=== PATIENT | female | born 1955 | race African-American/Black ===

== ENCOUNTER 2017-02-18 19:26 | Inpatient (IN) | payer SELFPAY ==
[~2017-02-18] VITALS: Ht 157.5 cm; Wt 81.6 kg
[~2017-02-18 19:26] MED LIST: CLONIDINE; GLIPIZIDE; METFORMIN; METROPROLOL; NORVASC; [UNRECOGNIZED DRUG - OTHER]
[2017-02-18 20:38] LABS: BASOPHILS % 0.9 % (0.0-2.0); EOSINOPHILS % 1.1 % (0.0-5.0); HEMATOCRIT. 42.5 % (36.0-48.0); HEMOGLOBIN. 14.3 g/dL (12.0-16.0); LYMPHOCYTES % 26.8 % (20.0-50.0); MEAN CORPUSCULAR VOLUME 86.1 fL (81.0-99.0); MONOCYTES % 7.6 % (2.0-8.0); NEUTROPHILS % 63.6 % (40.0-76.0); PLATELET 239 x1000/uL (130-400); RED BLOOD CELL COUNT 4.94 mill/uL (4.2-5.4); RED CELL DISTRIBUTION WIDTH 13.4 % (11.6-14.6)
[2017-02-18 20:50] LABS: CARBON DIOXIDE 28 mEq/L (21-32); CHLORIDE 105 mEq/L (98-107)
[2017-02-18] MEDS ORDERED: AMLODIPINE 2.5MG TABLET PO ONE (21:00)
[2017-02-18] MEDS ORDERED: CLONIDINE 0.1MG TABLET PO ONE (21:00)
[2017-02-18] MEDS ORDERED: ASPIRIN 325MG TABLET PO ONE (22:15)
[2017-02-18 22:40] LABS: PROTHROMBIN TIME 10.1 sec (9.4-11.6)
[2017-02-18] MEDS ORDERED: GUAIFENESIN 200MG/10ML SUGAR FREE UDC PO PRN (23:00)
[2017-02-18] MEDS ORDERED: ZOLPIDEM TARTRATE 5MG TABLET PO PRN (23:00)
[2017-02-18] MEDS ORDERED: DIPHENHYDRAMINE 50MG/ML VIAL IV PRN (23:00)
[2017-02-18] MEDS ORDERED: ENOXAPARIN 40MG/0.4ML SYR SUBCUT SCH (23:00)
[2017-02-18] MEDS ORDERED: LORAZEPAM 2MG/ML CPJ IV PRN (23:00)
[2017-02-18] MEDS ORDERED: TRAMADOL 50MG TABLET PO PRN (23:00)
[2017-02-18] MEDS ORDERED: ONDANSETRON HCL 4MG/2ML VIAL IV PRN (23:00)
[2017-02-18] MEDS ORDERED: ACETAMINOPHEN 325MG TABLET PO PRN (23:00)
[2017-02-18] MEDS ORDERED: DOCUSATE SODIUM 100MG CAPSULE PO PRN (23:00)
[2017-02-18] MEDS ORDERED: IPRATROPIUM/ALBUTEROL 0.5-3(2.5)MG/3ML NEB INH PRN (23:00)
[2017-02-18] MEDS ORDERED: MAGNESIUM/ALUMINUM HYDROXIDE/SIMETHICONE 30ML UDC PO PRN (23:00)
[2017-02-18] MEDS ORDERED: KETOROLAC 15MG/ML VIAL IV PRN (23:00)
[2017-02-19] VITALS (7 sets, daily range): BP systolic 122–175; BP diastolic 55–81
[2017-02-19] MEDS ORDERED: NA PHOS,M-B/NA PHOS,DI-BA ENEMA 118ML PR PRN (02:29)
[2017-02-19] MEDS: CLONIDINE 0.1MG TABLET PO PRN (02:35)
[2017-02-19 06:36] LABS: CREATINE KINASE 42 IU/L (26-192); TROPONIN I < 0.02 ng/mL (0.00-0.04)
[2017-02-19 06:43] LABS: CLARITY URINE CLEAR (CLEAR); COLOR URINE YELLOW (YELLOW); GLUCOSE URINE 3+ (NEGATIVE); KETONES URINE NEGATIVE (NEGATIVE); LEUKOCYTE ESTERASE URINE NEGATIVE (NEGATIVE); NITRITE URINE NEGATIVE (NEGATIVE); OCCULT BLOOD URINE NEGATIVE (NEGATIVE); PROTEIN URINE NEGATIVE (NEGATIVE); SPECIFIC GRAVITY URINE 1.059 (1.005-1.030)
[2017-02-19 07:02] LABS: CREATINE KINASE MB FRACTION < 0.5 ng/mL (0.5-3.6)
[2017-02-19 07:19] LABS: *AMPHETAMINES SCREEN URINE NEGATIVE (NEGATIVE); *BARBITURATES SCREEN URINE NEGATIVE (NEGATIVE); *BENZODIAZEPINES SCREEN URINE NEGATIVE (NEGATIVE); *COCAINE SCREEN URINE NEGATIVE (NEGATIVE); CANNABINOID URINE SCREEN NEGATIVE (NEGATIVE); METHADONE URINE SCREEN NEGATIVE (NEGATIVE); OPIATES URINE SCREEN NEGATIVE (NEGATIVE); PHENCYCLIDINE URINE SCREEN NEGATIVE (NEGATIVE)
[2017-02-19] MEDS: FAMOTIDINE 20MG/2ML VIAL IV SCH ×2 (08:48→21:25)
[2017-02-19] MEDS: ASPIRIN 325MG EC TABLET PO SCH (08:48)
[2017-02-19] MEDS: ENOXAPARIN 30MG/0.3ML SYR SUBCUT SCH ×2 (08:49→21:25)
[2017-02-19] MEDS ORDERED: IOHEXOL-350 100 ML BOTTLE ONE (11:12)
[2017-02-19] MEDS ORDERED: SODIUM CHLORIDE 0.9% 10ML VIAL ONE (11:12)
[2017-02-19 16:22] LABS: CREATINE KINASE 44 IU/L (26-192); CREATINE KINASE MB FRACTION 0.5 ng/mL (0.5-3.6); TROPONIN I < 0.02 ng/mL (0.00-0.04)
[2017-02-19] MEDS ORDERED: HYDR-2510 PO (17:16)
[2017-02-19] MEDS ORDERED: LOSA100T14 PO (17:16)
[2017-02-19] MEDS ORDERED: GLIP10TA10 PO (17:16)
[2017-02-19] MEDS ORDERED: AMLO10TA80 PO (17:16)
[2017-02-19] MEDS ORDERED: EMPA25TA PO (17:16)
[2017-02-19] MEDS ORDERED: ASPI-1028 PO (17:16)
[2017-02-19] MEDS ORDERED: LISI10TA5 PO (17:16)
[2017-02-19] MEDS ORDERED: ATOR-2 PO (17:16)
[2017-02-19] MEDS ORDERED: METF10002 PO (17:16)
[2017-02-19] MEDS: ATORVASTATIN CALCIUM 40MG TABLET PO SCH (21:24)
[2017-02-20] VITALS: BP 144/72
[2017-02-20 04:00] VITALS: BP 165/68
[2017-02-20] MEDS: CLONIDINE 0.1MG TABLET PO PRN (04:20)
[2017-02-20 06:30] VITALS: BP 147/63
[2017-02-20] MEDS: FAMOTIDINE 20MG/2ML VIAL IV SCH ×2 (09:16→22:01)
[2017-02-20] MEDS: ASPIRIN 325MG EC TABLET PO SCH (09:16)
[2017-02-20] MEDS: ENOXAPARIN 30MG/0.3ML SYR SUBCUT SCH ×2 (09:17→22:02)
[2017-02-20] MEDS: CLOPIDOGREL 75MG TABLET PO SCH (10:24)
[2017-02-20 12:00] VITALS: BP 167/76
[2017-02-20 12:35] LABS: FOLIC ACID (FOLATE) SERUM 11.5 ng/mL (>5.38)
[2017-02-20 16:00] VITALS: BP 157/72
[2017-02-20 20:00] VITALS: BP 168/76
[2017-02-20] MEDS: METOPROLOL TARTRATE 25MG TABLET PO SCH (22:01)
[2017-02-20] MEDS: LISINOPRIL 20MG TABLET PO SCH (22:01)
[2017-02-20] MEDS: ATORVASTATIN CALCIUM 40MG TABLET PO SCH (22:03)
[2017-02-21] VITALS: BP 186/70
[2017-02-21] MEDS: CLONIDINE 0.1MG TABLET PO PRN (00:35)
[2017-02-21 04:00] VITALS: BP 137/70
[2017-02-21 08:00] VITALS: BP 149/67
[2017-02-21] MEDS: CLOPIDOGREL 75MG TABLET PO SCH (09:32)
[2017-02-21] MEDS: LISINOPRIL 20MG TABLET PO SCH ×2 (09:33→22:53)
[2017-02-21] MEDS: METOPROLOL TARTRATE 25MG TABLET PO SCH ×2 (09:33→21:46)
[2017-02-21] MEDS: ENOXAPARIN 30MG/0.3ML SYR SUBCUT SCH ×2 (09:34→21:47)
[2017-02-21] MEDS: FAMOTIDINE 20MG/2ML VIAL IV SCH ×2 (09:34→21:47)
[2017-02-21 12:00] VITALS: BP 144/76
[2017-02-21 16:00] VITALS: BP 148/77
[2017-02-21 20:00] VITALS: BP 137/74
[2017-02-21] MEDS: ATORVASTATIN CALCIUM 40MG TABLET PO SCH (21:46)
[2017-02-22] VITALS (7 sets, daily range): BP systolic 117–189; BP diastolic 66–95
[2017-02-22] MEDS: CLONIDINE 0.1MG TABLET PO PRN (01:30)
[2017-02-22] MEDS: FAMOTIDINE 20MG/2ML VIAL IV SCH (08:45)
[2017-02-22] MEDS: METOPROLOL TARTRATE 25MG TABLET PO SCH (08:45)
[2017-02-22] MEDS: LISINOPRIL 20MG TABLET PO SCH (08:46)
[2017-02-22] MEDS: ENOXAPARIN 30MG/0.3ML SYR SUBCUT SCH (08:46)
[2017-02-22] MEDS: CLOPIDOGREL 75MG TABLET PO SCH (08:46)
== END 2017-02-22 18:15 | DRG 45 ==
LOC: ER 19:26 → 8WST 22:37 → ENRESERV 23:12
PROVIDERS: ADMIT Internal Medicine; ATTEND Internal Medicine
DX: I63.9 Cerebral infarction, unspecified (principal); E11.65 Type 2 diabetes mellitus with hyperglycemia; I10 Essential (primary) hypertension; I25.10 Atherosclerotic heart disease of native coronary artery without angina pectoris; Z79.4 Long term (current) use of insulin; Z79.82 Long term (current) use of aspirin; Z79.899 Other long term (current) drug therapy; I69.351 Hemiplegia and hemiparesis following cerebral infarction affecting right dominant side
CPT/HCPCS: 36415; 70450; 70496; 70551; 71010; 80053; 80061; 80305; 81001; 82550; 82553; 82607; 82746; 82962; 83036; 84484; 85025; 85610; 92523; 93005; 93306; 93880; 93970; 97112; 97163; 97167; 97530; 99291; A4216; A4565; J1650; J3490; Q9967

== ENCOUNTER 2017-03-26 01:25 | Emergency (ER) | payer SELFPAY ==
[~2017-03-26] VITALS: Ht 167.6 cm; Wt 62.0 kg
[~2017-03-26 01:25] MED LIST changes: +AMLO10TA80 PO; +ASPI-1028 PO; +ATOR-2 PO; +EMPA25TA PO; +GLIP10TA10 PO; +HYDR-2510 PO; +LISI10TA5 PO; +LOSA100T14 PO; +METF10002 PO
[2017-03-26] MEDS ORDERED: KETOROLAC 30MG/ML VIAL IV ONE (01:30)
[2017-03-26] MEDS ORDERED: MORPHINE SULFATE 4 MG/ML CPJ (NOT FOR IM USE) IV ONE (01:30)
[2017-03-26] MEDS ORDERED: TRAMADOL 50MG TABLET PO ONE (04:00)
[2017-03-26 05:02] VITALS: BP 152/70
== END 2017-03-26 05:10 | disposition home or self-care (01) ==
LOC: ER 01:25
DX: M25.551 Pain in right hip (principal); R03.0 Elevated blood-pressure reading, without diagnosis of hypertension; E11.9 Type 2 diabetes mellitus without complications; I69.351 Hemiplegia and hemiparesis following cerebral infarction affecting right dominant side; Z79.82 Long term (current) use of aspirin; Z79.84 Long term (current) use of oral hypoglycemic drugs; Z79.899 Other long term (current) drug therapy
CPT/HCPCS: 73502; 73552; 73590; 96374; 96375; 99284; J1885; J2270; Z7610

== ENCOUNTER 2017-03-29 20:32 | Emergency (ER) | payer SELFPAY ==
[~2017-03-29] VITALS: Ht 157.5 cm; Wt 79.0 kg
[2017-03-29] MEDS ORDERED: TRAMADOL 50MG TABLET PO ONE (22:15)
[2017-03-29 23:32] VITALS: BP 165/80
== END 2017-03-29 23:55 | disposition home or self-care (01) ==
LOC: ER 20:32
DX: M79.604 Pain in right leg (principal); M79.605 Pain in left leg; E11.65 Type 2 diabetes mellitus with hyperglycemia; Z86.73 Personal history of transient ischemic attack (TIA), and cerebral infarction without residual deficits; Z79.82 Long term (current) use of aspirin
CPT/HCPCS: 82962; 93970; 99284; 99285

== ENCOUNTER 2018-08-16 13:03 | Inpatient (IN) | payer MEDICAID ==
[~2018-08-16] VITALS: Ht 157.5 cm; Wt 70.3 kg
[~2018-08-16 13:03] MED LIST changes: +METF-416 PO; -METF10002 PO
[2018-08-16] MEDS ORDERED: SODIUM CHLORIDE 0.9% 1,000 ML IV ONE (13:12)
[2018-08-16] MEDS ORDERED: METHYLPREDNISOLONE SOD SUCC 125 MG/2 ML VIAL IV ONE (13:15)
[2018-08-16] MEDS ORDERED: DIPHENHYDRAMINE 50MG/ML VIAL IV ONE (13:15)
[2018-08-16] MEDS ORDERED: FAMOTIDINE 20MG/2ML VIAL IV ONE (13:15)
[2018-08-16] MEDS ORDERED: DIPHENHYDRAMINE 50MG/ML VIAL ONE (13:24)
[2018-08-16] MEDS ORDERED: METHYLPREDNISOLONE SOD SUCC 125 MG/2 ML VIAL ONE (13:26)
[2018-08-16] MEDS ORDERED: ONDANSETRON HCL 4MG/2ML INJ IV ONE (13:30)
[2018-08-16 13:41] LABS: BASOPHILS % 0.5 % (0.0-2.0); EOSINOPHILS % 0.7 % (0.0-5.0); HEMATOCRIT. 38.8 % (36.0-48.0); HEMOGLOBIN. 12.9 g/dL (12.0-16.0); LYMPHOCYTES % 16.8 % (20.0-50.0); MEAN CORPUSCULAR HEMOGLOBIN 29.1 pg (28.0-32.0); MEAN CORPUSCULAR VOLUME 87.4 fL (81.0-99.0); MEAN PLATELET VOLUME 8.7 fl (7.4-10.4); MONOCYTES % 5.3 % (2.0-8.0); NEUTROPHILS % 76.7 % (40.0-76.0); PLATELET 312 x1000/uL (130-400); RED BLOOD CELL COUNT 4.44 mill/uL (4.2-5.4); RED CELL DISTRIBUTION WIDTH 12.9 % (11.6-14.6)
[2018-08-16 13:47] LABS: CHLORIDE 109 mEq/L (98-107)
[2018-08-16 13:49] LABS: PARTIAL THROMBOPLASTIN TIME 24.2 sec (23.4-31.0); PROTHROMBIN TIME 9.6 sec (9.1-11.1)
[2018-08-16] MEDS ORDERED: HYDRALAZINE 20MG/ML VIAL IV ONE (14:45)
[2018-08-16] MEDS ORDERED: HYDROMORPHONE HCL/PF 2MG/ML CPJ IV PRN (15:30)
[2018-08-16] MEDS ORDERED: IPRATROPIUM/ALBUTEROL 0.5-3(2.5)MG/3ML NEB INH PRN (15:30)
[2018-08-16] MEDS ORDERED: DEXTROSE 50% WATER 50ML SYRINGE IV PRN (15:30)
[2018-08-16] MEDS ORDERED: ONDANSETRON HCL 4MG/2ML INJ IV PRN (15:30)
[2018-08-16] MEDS ORDERED: HYDRALAZINE 20MG/ML VIAL IV PRN (15:30)
[2018-08-16] MEDS ORDERED: LORAZEPAM 2MG/ML CPJ IV PRN (15:30)
[2018-08-16] MEDS ORDERED: DOCUSATE SODIUM 100MG CAPSULE PO PRN (15:30)
[2018-08-16] MEDS ORDERED: ACETAMINOPHEN 325MG TABLET PO PRN (15:30)
[2018-08-16] MEDS ORDERED: MAGNESIUM/ALUMINUM HYDROXIDE/SIMETHICONE 30ML UDC PO PRN (15:30)
[2018-08-16] MEDS ORDERED: CLONIDINE 0.1MG TABLET PO PRN (15:30)
[2018-08-16] MEDS ORDERED: DIPHENHYDRAMINE 50MG/ML VIAL IV PRN (15:30)
[2018-08-16] MEDS ORDERED: HYDROCODONE/ACETAMINOPHEN 10/325MG TABLET PO PRN (15:30)
[2018-08-16] MEDS ORDERED: GUAIFENESIN 200MG/10ML SUGAR FREE UDC PO PRN (15:30)
[2018-08-16] MEDS: BLOOD SUGAR DIAGNOSTIC STRIP TEST SCH ×2 (17:00→21:00)
[2018-08-16 17:31] VITALS: BP 130/70
[2018-08-16] MEDS: INSULIN LISPRO 100 UNITS/ML SUBCUT SCH (18:28)
[2018-08-16 18:30] VITALS: BP 130/70
[2018-08-16 20:00] VITALS: BP 153/68
[2018-08-16] MEDS ORDERED: ENOXAPARIN 40MG/0.4ML SYR SUBCUT SCH (20:00)
[2018-08-16] MEDS: METHYLPREDNISOLONE SOD SUCC 125 MG/2 ML VIAL IV SCH (20:50)
[2018-08-16] MEDS: SODIUM CHLORIDE 0.9% INJ 3ML FLUSH IVF SCH (22:00)
[2018-08-17] VITALS: BP 144/66
[2018-08-17 00:13] LABS: CREATINE KINASE MB FRACTION 2.1 ng/mL (0.5-3.6)
[2018-08-17] MEDS: INSULIN LISPRO 100 UNITS/ML SUBCUT SCH ×3 (00:14→11:44)
[2018-08-17] MEDS: BLOOD SUGAR DIAGNOSTIC STRIP TEST SCH ×4 (00:16→11:43)
[2018-08-17] MEDS: METHYLPREDNISOLONE SOD SUCC 125 MG/2 ML VIAL IV SCH ×3 (02:00→14:00)
[2018-08-17 04:00] VITALS: BP 129/79
[2018-08-17] MEDS: SODIUM CHLORIDE 0.9% INJ 3ML FLUSH IVF SCH ×2 (06:44→15:25)
[2018-08-17 07:11] LABS: HEMATOCRIT. 33.3 % (36.0-48.0); HEMOGLOBIN. 11.4 g/dL (12.0-16.0); LYMPHOCYTES % 14.7 % (20.0-50.0); MEAN CORPUSCULAR HEMOGLOBIN 30.1 pg (28.0-32.0); MEAN CORPUSCULAR VOLUME 87.6 fL (81.0-99.0); MEAN PLATELET VOLUME 8.6 fl (7.4-10.4); MONOCYTES % 3.3 % (2.0-8.0); PLATELET 227 x1000/uL (130-400); RED CELL DISTRIBUTION WIDTH 12.9 % (11.6-14.6)
[2018-08-17 07:19] LABS: CHLORIDE 112 mEq/L (98-107)
[2018-08-17 07:32] LABS: CREATINE KINASE 74 IU/L (26-192); CREATINE KINASE MB FRACTION 1.8 ng/mL (0.5-3.6)
[2018-08-17 08:00] VITALS: BP 173/81
[2018-08-17] MEDS ORDERED: ASPIRIN 81MG EC TABLET PO SCH (09:00)
[2018-08-17 10:31] VITALS: BP 145/70
[2018-08-17 10:41] VITALS: BP 145/70
[2018-08-17 12:00] VITALS: BP 189/77
== END 2018-08-17 15:30 | disposition home or self-care (01) | DRG 811 ==
LOC: ER 13:03 → 8WST 14:39 → EDBEDREQ 14:44 → ENRESERV 16:33
PROVIDERS: ADMIT Internal Medicine; ATTEND Internal Medicine
DX: T78.49XA Other allergy, initial encounter (principal); E11.65 Type 2 diabetes mellitus with hyperglycemia; I10 Essential (primary) hypertension; D72.829 Elevated white blood cell count, unspecified; X58.XXXA Exposure to other specified factors, initial encounter; I69.351 Hemiplegia and hemiparesis following cerebral infarction affecting right dominant side
CPT/HCPCS: 36415; 71045; 82550; 82553; 82962; 83880; 84484; 93005; 96365; 96375; 99285; J0360; J1200; J1650; J1815; J2405; J2930; J3490; J7030

== ENCOUNTER 2019-12-29 20:24 | Inpatient (IN) | payer MEDICAID, OTHER ==
[~2019-12-29] VITALS: Ht 157.5 cm; Wt 87.5 kg
[~2019-12-29 20:24] MED LIST changes: +AMLO10TA4 MT; -AMLO10TA80 PO; -ASPI-1028 PO; +CALC-30 MT; -CLONIDINE; +CLOP75TA4 MT; -EMPA25TA PO; -GLIP10TA10 PO; -GLIPIZIDE; +HYDR100T26 PO; +LISI-604 PO; -LISI10TA5 PO; -LOSA100T14 PO; -METFORMIN; -METROPROLOL; -NORVASC; -[UNRECOGNIZED DRUG - OTHER]
[2019-12-29] MEDS ORDERED: HYDROCODONE/ACETAMINOPHEN 5/325MG TABLET PO STA (20:54)
[2019-12-29] MEDS ORDERED: NITROGLYCERIN OINT 1GM/INCH UDPKT TD ONE (21:00)
[2019-12-29 21:29] LABS: BASOPHILS % 0.5 % (0.0-2.0); EOSINOPHILS % 1.5 % (0.0-5.0); HEMATOCRIT. 33.9 % (36.0-48.0); HEMOGLOBIN. 11.5 g/dL (12.0-16.0); LYMPHOCYTES % 20.3 % (20.0-50.0); MEAN CORPUSCULAR HEMOGLOBIN 29.8 pg (28.0-32.0); MEAN CORPUSCULAR VOLUME 88.2 fL (81.0-99.0); MEAN PLATELET VOLUME 9.1 fl (7.4-10.4); MONOCYTES % 9.9 % (2.0-8.0); NEUTROPHILS % 67.8 % (40.0-76.0); PLATELET 258 x1000/uL (130-400); RED BLOOD CELL COUNT 3.85 mill/uL (4.2-5.4); RED CELL DISTRIBUTION WIDTH 13.4 % (11.6-14.6)
[2019-12-29 21:33] LABS: INR 0.9; PROTHROMBIN TIME 9.8 sec (9.6-11.0)
[2019-12-29 21:38] LABS: CHLORIDE 110 mEq/L (98-107)
[2019-12-30] MEDS ORDERED: ONDANSETRON HCL 4MG/2ML INJ IV PRN (00:15)
[2019-12-30] MEDS ORDERED: GUAIFENESIN 200MG/10ML SUGAR FREE UDC PO PRN (00:15)
[2019-12-30] MEDS ORDERED: MAGNESIUM/ALUMINUM HYDROXIDE/SIMETHICONE 30ML UDC PO PRN (00:15)
[2019-12-30] MEDS ORDERED: ACETAMINOPHEN 325MG TABLET PO PRN (00:15)
[2019-12-30] MEDS ORDERED: DOCUSATE SODIUM 100MG CAPSULE PO PRN (00:15)
[2019-12-30] MEDS ORDERED: AMLODIPINE 10MG TABLET PO SCH (01:00)
[2019-12-30] MEDS: ENOXAPARIN 40MG/0.4ML SYR SUBCUT SCH ×2 (01:23→21:45)
[2019-12-30 04:31] VITALS: BP 159/76
[2019-12-30 08:00] VITALS: BP 154/66
[2019-12-30 08:19] LABS: CREATINE KINASE 72 IU/L (26-192)
[2019-12-30 12:00] VITALS: BP 156/71
[2019-12-30] MEDS: HYDRALAZINE HCL 100MG TABLET PO SCH ×2 (12:20→17:57)
[2019-12-30] MEDS: LISINOPRIL 20MG TABLET PO SCH (12:20)
[2019-12-30] MEDS: CLOPIDOGREL 75MG TABLET PO SCH (12:21)
[2019-12-30] MEDS: AMLODIPINE 10MG TABLET PO SCH (12:21)
[2019-12-30] MEDS: HYDROCODONE/ACETAMINOPHEN 5/325MG TABLET PO PRN (14:01)
[2019-12-30 15:27] LABS: CREATINE KINASE 73 IU/L (26-192)
[2019-12-30 16:00] VITALS: BP 148/55
[2019-12-30] MEDS: METFORMIN HCL 500MG TABLET PO SCH (17:56)
[2019-12-30 20:00] VITALS: BP 149/69
[2019-12-31] VITALS (7 sets, daily range): BP systolic 142–177; BP diastolic 54–72
[2019-12-31] MEDS: CLONIDINE 0.1MG TABLET PO PRN (01:25)
[2019-12-31 05:56] LABS: BASOPHILS % 0.5 % (0.0-2.0); EOSINOPHILS % 2.6 % (0.0-5.0); HEMOGLOBIN. 9.8 g/dL (12.0-16.0); LYMPHOCYTES % 25.4 % (20.0-50.0); MEAN CORPUSCULAR HEMOGLOBIN 29.7 pg (28.0-32.0); MEAN PLATELET VOLUME 9.3 fl (7.4-10.4); NEUTROPHILS % 61.5 % (40.0-76.0); PLATELET 222 x1000/uL (130-400); RED CELL DISTRIBUTION WIDTH 12.8 % (11.6-14.6)
[2019-12-31 06:10] LABS: CHLORIDE 111 mEq/L (98-107)
[2019-12-31 06:21] LABS: LDL CHOLESTEROL 50 mg/dL (5-100)
[2019-12-31 06:23] LABS: HDL CHOLESTEROL 38 mg/dL (40-59)
[2019-12-31] MEDS: METFORMIN HCL 500MG TABLET PO SCH ×2 (06:28→17:42)
[2019-12-31] MEDS: LISINOPRIL 20MG TABLET PO SCH (08:11)
[2019-12-31] MEDS: CLOPIDOGREL 75MG TABLET PO SCH (08:12)
[2019-12-31] MEDS: HYDRALAZINE HCL 100MG TABLET PO SCH ×3 (08:12→17:42)
[2019-12-31] MEDS: AMLODIPINE 10MG TABLET PO SCH (08:12)
[2019-12-31] MEDS: HYDROCODONE/ACETAMINOPHEN 5/325MG TABLET PO PRN ×2 (11:31→17:43)
[2019-12-31] MEDS: FUROSEMIDE 40MG TABLET PO SCH (13:05)
[2019-12-31] MEDS: ENOXAPARIN 40MG/0.4ML SYR SUBCUT SCH (21:47)
[2020-01-01] VITALS: BP 149/50
[2020-01-01 04:00] VITALS: BP 173/65
[2020-01-01] MEDS: METFORMIN HCL 500MG TABLET PO SCH (06:26)
[2020-01-01 08:00] VITALS: BP 190/63
[2020-01-01] MEDS: LISINOPRIL 20MG TABLET PO SCH (08:14)
[2020-01-01] MEDS: AMLODIPINE 10MG TABLET PO SCH (08:14)
[2020-01-01] MEDS: CLOPIDOGREL 75MG TABLET PO SCH (08:14)
[2020-01-01] MEDS: FUROSEMIDE 40MG TABLET PO SCH (08:14)
[2020-01-01] MEDS: HYDRALAZINE HCL 100MG TABLET PO SCH ×2 (08:14→14:29)
[2020-01-01] MEDS: CLONIDINE 0.1MG TABLET PO PRN (10:57)
[2020-01-01 12:00] VITALS: BP 140/65
== END 2020-01-01 17:00 | disposition home or self-care (01) | DRG 203 ==
LOC: ER 20:24 → EDBEDREQ 23:43 → EDBEDREQTM 23:43 → MICUSO 12-30 → 5WST 12-30 01:45
PROVIDERS: ADMIT Hospitalist; ATTEND Hospitalist
DX: R07.89 Other chest pain (principal); E78.5 Hyperlipidemia, unspecified; E11.9 Type 2 diabetes mellitus without complications; S90.821A Blister (nonthermal), right foot, initial encounter; S90.521A Blister (nonthermal), right ankle, initial encounter; I10 Essential (primary) hypertension; S42.301A Unspecified fracture of shaft of humerus, right arm, initial encounter for closed fracture; W18.39XA Other fall on same level, initial encounter; X58.XXXA Exposure to other specified factors, initial encounter; Y93.89 Activity, other specified; I69.351 Hemiplegia and hemiparesis following cerebral infarction affecting right dominant side; Z91.19 Patient's noncompliance with other medical treatment and regimen; Y92.89 Other specified places as the place of occurrence of the external cause; Y99.8 Other external cause status; Z74.01 Bed confinement status
CPT/HCPCS: 36415; 71045; 73060; 73090; 80053; 80061; 82550; 82962; 83880; 84484; 85025; 93005; 93970; 96372; 99285; J1650

== ENCOUNTER 2020-09-16 14:36 | Inpatient (IN) | payer MEDICARE, OTHER ==
[~2020-09-16] VITALS: Ht 157.5 cm; Wt 75.1 kg
[~2020-09-16 14:36] MED LIST changes: +CALC-1249 MT; -CALC-30 MT; +CLOP-31 MT; -CLOP75TA4 MT; -HYDR-2510 PO; +HYDR50TA PO; -LISI-604 PO; +LISI20TA31 PO
[2020-09-16 15:57] LABS: BASOPHILS % 0.7 % (0.0-2.0); EOSINOPHILS % 1.1 % (0.0-5.0); HEMATOCRIT. 42.8 % (36.0-48.0); HEMOGLOBIN. 14.5 g/dL (12.0-16.0); LYMPHOCYTES % 23.1 % (20.0-50.0); MEAN CORPUSCULAR HEMOGLOBIN 29.2 pg (28.0-32.0); MEAN CORPUSCULAR VOLUME 86.6 fL (81.0-99.0); MEAN PLATELET VOLUME 9.2 fl (7.4-10.4); NEUTROPHILS % 67.1 % (40.0-76.0); PLATELET 272 x1000/uL (130-400); RED BLOOD CELL COUNT 4.94 mill/uL (4.2-5.4); RED CELL DISTRIBUTION WIDTH 13.4 % (11.6-14.6)
[2020-09-16 16:05] LABS: CHLORIDE 104 mEq/L (98-107)
[2020-09-16 16:08] LABS: INR 0.9; PROTHROMBIN TIME 9.7 sec (9.6-11.0)
[2020-09-16] MEDS ORDERED: INSULIN REGULAR (HUMULIN R) UD 100 UNITS/ML SYR SUBCUT ONE (17:00)
[2020-09-16] MEDS ORDERED: ACETAMINOPHEN 325MG TABLET PO ONE (17:00)
[2020-09-16] MEDS ORDERED: LABETALOL 5MG/ML SYR 20 MG/4 ML SYRINGE IV ONE (18:00)
[2020-09-16] MEDS ORDERED: ZOLPIDEM TARTRATE 5MG TABLET PO PRN (19:00)
[2020-09-16] MEDS ORDERED: GUAIFENESIN 200MG/10ML SUGAR FREE UDC PO PRN (19:00)
[2020-09-16] MEDS ORDERED: ONDANSETRON HCL 4MG/2ML INJ IV PRN (19:00)
[2020-09-16] MEDS ORDERED: DOCUSATE SODIUM 100MG CAPSULE PO PRN (19:00)
[2020-09-16] MEDS ORDERED: NA PHOS,M-B/NA PHOS,DI-BA ENEMA 118ML PR PRN (19:00)
[2020-09-16] MEDS ORDERED: MAGNESIUM/ALUMINUM HYDROXIDE/SIMETHICONE 30ML UDC PO PRN (19:00)
[2020-09-16] MEDS ORDERED: IPRATROPIUM/ALBUTEROL 0.5-3(2.5)MG/3ML NEB NEB PRN (19:00)
[2020-09-16] MEDS ORDERED: KETOROLAC 15MG/ML VIAL IV PRN (19:00)
[2020-09-16] MEDS ORDERED: ACETAMINOPHEN 325MG TABLET PO PRN ×2 (19:00)
[2020-09-16] MEDS ORDERED: TRAMADOL 50MG TABLET PO PRN (19:00)
[2020-09-16] MEDS ORDERED: NITROGLYCERIN 0.4MG TABLET SL SL PRN (19:00)
[2020-09-16] MEDS ORDERED: DEXTROSE 50% WATER 50ML SYRINGE IV PRN (19:00)
[2020-09-16] MEDS ORDERED: GABAPENTIN 100MG CAPSULE PO NR (19:30)
[2020-09-16] MEDS: ASCORBIC ACID 500 MG TABLET PO SCH (20:36)
[2020-09-16] MEDS: FAMOTIDINE 20MG TABLET PO SCH (20:36)
[2020-09-16] MEDS: LISINOPRIL 20MG TABLET PO SCH (20:37)
[2020-09-16] MEDS: FUROSEMIDE 40MG/4ML VIAL IVP SCH (20:37)
[2020-09-16] MEDS: ENOXAPARIN 40MG/0.4ML SYR SUBCUT SCH (20:38)
[2020-09-16 20:46] LABS: T4 FREE 1.26 ng/dL (0.76-1.46)
[2020-09-16] MEDS: BLOOD SUGAR DIAGNOSTIC STRIP TEST SCH (21:00)
[2020-09-16 21:07] LABS: FOLIC ACID (FOLATE) SERUM 8.3 ng/mL (>5.38)
[2020-09-16] MEDS: AMLODIPINE 10MG TABLET PO SCH (21:07)
[2020-09-16] MEDS: SPIRONOLACTONE 25MG TABLET PO SCH (21:07)
[2020-09-16 21:50] VITALS: BP 216/84
[2020-09-16] MEDS ORDERED: INSULIN GLARGINE UD 100 UNITS/ML SYR SUBCUT SCH (22:00)
[2020-09-16] MEDS: HYDRALAZINE HCL 50MG TABLET PO SCH (22:58)
[2020-09-16] MEDS: INSULIN LISPRO 100 UNITS/ML SUBCUT SCH (23:03)
[2020-09-17] VITALS: BP 206/70
[2020-09-17] MEDS ORDERED: GABA-529 PO (00:05)
[2020-09-17] MEDS: CLONIDINE 0.1MG TABLET PO PRN ×2 (00:11→12:34)
[2020-09-17 00:46] LABS: CREATINE KINASE 39 IU/L (26-192)
[2020-09-17 00:48] LABS: CREATINE KINASE MB FRACTION < 1.0 ng/mL (0.5-3.6)
[2020-09-17 04:00] VITALS: BP 140/64
[2020-09-17] MEDS: BLOOD SUGAR DIAGNOSTIC STRIP TEST SCH ×4 (06:03→21:19)
[2020-09-17] MEDS: HYDRALAZINE HCL 50MG TABLET PO SCH ×3 (06:19→22:31)
[2020-09-17] MEDS: INSULIN LISPRO 100 UNITS/ML SUBCUT SCH ×4 (06:21→21:00)
[2020-09-17 06:56] LABS: BASOPHILS % 0.3 % (0.0-2.0); EOSINOPHILS % 1.3 % (0.0-5.0); HEMATOCRIT. 38.7 % (36.0-48.0); HEMOGLOBIN. 13.1 g/dL (12.0-16.0); LYMPHOCYTES % 26.4 % (20.0-50.0); MEAN CORPUSCULAR HEMOGLOBIN 29.5 pg (28.0-32.0); MEAN CORPUSCULAR VOLUME 87.1 fL (81.0-99.0); MEAN PLATELET VOLUME 9.8 fl (7.4-10.4); MONOCYTES % 8.6 % (2.0-8.0); NEUTROPHILS % 63.4 % (40.0-76.0); PLATELET 234 x1000/uL (130-400); RED BLOOD CELL COUNT 4.44 mill/uL (4.2-5.4); RED CELL DISTRIBUTION WIDTH 13.2 % (11.6-14.6)
[2020-09-17 07:02] LABS: CHLORIDE 107 mEq/L (98-107)
[2020-09-17 07:14] LABS: PHOSPHORUS 3.9 mg/dL (2.5-4.9)
[2020-09-17 07:16] LABS: CREATINE KINASE 34 IU/L (26-192)
[2020-09-17 07:20] LABS: CREATINE KINASE MB FRACTION < 1.0 ng/mL (0.5-3.6)
[2020-09-17 08:00] VITALS: BP 133/64
[2020-09-17] MEDS ORDERED: ASPIRIN 325MG EC TABLET PO SCH (09:00)
[2020-09-17] MEDS: SPIRONOLACTONE 25MG TABLET PO SCH ×2 (09:44→20:34)
[2020-09-17] MEDS: FUROSEMIDE 40MG/4ML VIAL IVP SCH ×2 (09:44→20:26)
[2020-09-17] MEDS: CHOLECALCIFEROL (D3) 1000 UNIT TABLET PO SCH (09:44)
[2020-09-17] MEDS: LISINOPRIL 20MG TABLET PO SCH ×2 (09:44→20:35)
[2020-09-17] MEDS: ZINC SULFATE 220 MG ( 50 ) CAPSULE PO SCH (09:45)
[2020-09-17] MEDS: CLOPIDOGREL 75MG TABLET PO SCH (09:45)
[2020-09-17] MEDS: AMLODIPINE 10MG TABLET PO SCH (09:45)
[2020-09-17] MEDS: ASCORBIC ACID 500 MG TABLET PO SCH ×2 (09:45→20:27)
[2020-09-17] MEDS: FAMOTIDINE 20MG TABLET PO SCH (09:45)
[2020-09-17] MEDS ORDERED: POTASSIUM CHLORIDE 20MEQ/PACKET PO NR (10:45)
[2020-09-17 12:00] VITALS: BP 196/67
[2020-09-17 16:00] VITALS: BP 152/69
[2020-09-17 20:00] VITALS: BP 151/89
[2020-09-17] MEDS: ENOXAPARIN 40MG/0.4ML SYR SUBCUT SCH (20:26)
[2020-09-17] MEDS: ATORVASTATIN CALCIUM 40MG TABLET PO SCH (20:27)
[2020-09-17] MEDS: INSULIN GLARGINE UD 100 UNITS/ML SYR SUBCUT SCH (22:31)
[2020-09-18] VITALS: BP 133/68
[2020-09-18 04:00] VITALS: BP 157/65
[2020-09-18] MEDS: BLOOD SUGAR DIAGNOSTIC STRIP TEST SCH ×4 (05:45→20:59)
[2020-09-18] MEDS: HYDRALAZINE HCL 50MG TABLET PO SCH ×3 (05:45→21:04)
[2020-09-18] MEDS: INSULIN LISPRO 100 UNITS/ML SUBCUT SCH ×4 (06:18→20:59)
[2020-09-18 08:00] VITALS: BP 143/58
[2020-09-18] MEDS: CHOLECALCIFEROL (D3) 1000 UNIT TABLET PO SCH (10:14)
[2020-09-18] MEDS: FUROSEMIDE 40MG/4ML VIAL IVP SCH ×2 (10:14→21:04)
[2020-09-18] MEDS: ZINC SULFATE 220 MG ( 50 ) CAPSULE PO SCH (10:14)
[2020-09-18] MEDS: ASCORBIC ACID 500 MG TABLET PO SCH ×2 (10:15→21:04)
[2020-09-18] MEDS: SPIRONOLACTONE 25MG TABLET PO SCH ×2 (10:15→21:04)
[2020-09-18] MEDS: FAMOTIDINE 20MG TABLET PO SCH (10:15)
[2020-09-18] MEDS: LISINOPRIL 20MG TABLET PO SCH ×2 (10:15→21:04)
[2020-09-18] MEDS: CLOPIDOGREL 75MG TABLET PO SCH (10:16)
[2020-09-18] MEDS: AMLODIPINE 10MG TABLET PO SCH (10:16)
[2020-09-18 12:00] VITALS: BP 191/85
[2020-09-18] MEDS: CLONIDINE 0.1MG TABLET PO PRN (14:43)
[2020-09-18 16:00] VITALS: BP 159/64
[2020-09-18 20:00] VITALS: BP 174/67
[2020-09-18] MEDS: ENOXAPARIN 40MG/0.4ML SYR SUBCUT SCH (21:03)
[2020-09-18] MEDS: ATORVASTATIN CALCIUM 40MG TABLET PO SCH (21:04)
[2020-09-18] MEDS: INSULIN GLARGINE UD 100 UNITS/ML SYR SUBCUT SCH (21:05)
[2020-09-19] VITALS: BP 147/59
[2020-09-19 04:00] VITALS: BP 149/71
[2020-09-19] MEDS: BLOOD SUGAR DIAGNOSTIC STRIP TEST SCH ×4 (05:59→20:38)
[2020-09-19] MEDS: INSULIN LISPRO 100 UNITS/ML SUBCUT SCH ×4 (06:21→20:41)
[2020-09-19] MEDS: HYDRALAZINE HCL 50MG TABLET PO SCH ×3 (06:26→22:20)
[2020-09-19 08:00] VITALS: BP 158/60
[2020-09-19] MEDS: ASCORBIC ACID 500 MG TABLET PO SCH ×2 (08:28→20:40)
[2020-09-19] MEDS: FUROSEMIDE 40MG/4ML VIAL IVP SCH ×2 (08:28→20:39)
[2020-09-19] MEDS: CLOPIDOGREL 75MG TABLET PO SCH (08:28)
[2020-09-19] MEDS: CHOLECALCIFEROL (D3) 1000 UNIT TABLET PO SCH (08:28)
[2020-09-19] MEDS: ZINC SULFATE 220 MG ( 50 ) CAPSULE PO SCH (08:28)
[2020-09-19] MEDS: LISINOPRIL 20MG TABLET PO SCH ×2 (08:29→20:39)
[2020-09-19] MEDS: SPIRONOLACTONE 25MG TABLET PO SCH ×2 (08:29→20:40)
[2020-09-19] MEDS: AMLODIPINE 10MG TABLET PO SCH (08:29)
[2020-09-19] MEDS: FAMOTIDINE 20MG TABLET PO SCH (08:29)
[2020-09-19 12:00] VITALS: BP 156/75
[2020-09-19 16:00] VITALS: BP 130/57
[2020-09-19 20:00] VITALS: BP 161/68
[2020-09-19] MEDS: ATORVASTATIN CALCIUM 40MG TABLET PO SCH (20:39)
[2020-09-19] MEDS: ENOXAPARIN 40MG/0.4ML SYR SUBCUT SCH (20:39)
[2020-09-19] MEDS: INSULIN GLARGINE UD 100 UNITS/ML SYR SUBCUT SCH (22:21)
[2020-09-20] VITALS: BP 163/68
[2020-09-20] MEDS: CLONIDINE 0.1MG TABLET PO PRN ×2 (00:38→06:45)
[2020-09-20 04:00] VITALS: BP 173/66
[2020-09-20] MEDS: HYDRALAZINE HCL 50MG TABLET PO SCH ×3 (04:59→21:35)
[2020-09-20] MEDS: BLOOD SUGAR DIAGNOSTIC STRIP TEST SCH ×4 (06:16→20:10)
[2020-09-20] MEDS: INSULIN LISPRO 100 UNITS/ML SUBCUT SCH ×4 (06:16→20:31)
[2020-09-20 08:00] VITALS: BP 119/60
[2020-09-20] MEDS: SPIRONOLACTONE 25MG TABLET PO SCH ×2 (08:53→20:11)
[2020-09-20] MEDS: FAMOTIDINE 20MG TABLET PO SCH (08:53)
[2020-09-20] MEDS: CHOLECALCIFEROL (D3) 1000 UNIT TABLET PO SCH (08:53)
[2020-09-20] MEDS: FUROSEMIDE 40MG/4ML VIAL IVP SCH ×2 (08:53→20:10)
[2020-09-20] MEDS: ZINC SULFATE 220 MG ( 50 ) CAPSULE PO SCH (08:53)
[2020-09-20] MEDS: AMLODIPINE 10MG TABLET PO SCH (08:53)
[2020-09-20] MEDS: ASCORBIC ACID 500 MG TABLET PO SCH ×2 (08:53→20:10)
[2020-09-20] MEDS: CLOPIDOGREL 75MG TABLET PO SCH (08:54)
[2020-09-20] MEDS: LISINOPRIL 20MG TABLET PO SCH ×2 (08:54→20:12)
[2020-09-20 12:00] VITALS: BP 140/59
[2020-09-20 16:00] VITALS: BP 156/66
[2020-09-20 20:00] VITALS: BP 121/64
[2020-09-20] MEDS: ENOXAPARIN 40MG/0.4ML SYR SUBCUT SCH (20:10)
[2020-09-20] MEDS: ATORVASTATIN CALCIUM 40MG TABLET PO SCH (20:11)
[2020-09-20] MEDS: INSULIN GLARGINE UD 100 UNITS/ML SYR SUBCUT SCH (21:36)
[2020-09-21] VITALS: BP 139/66
[2020-09-21 04:00] VITALS: BP 167/71
[2020-09-21] MEDS: CLONIDINE 0.1MG TABLET PO PRN (04:08)
[2020-09-21] MEDS: HYDRALAZINE HCL 50MG TABLET PO SCH ×3 (05:56→21:13)
[2020-09-21] MEDS: BLOOD SUGAR DIAGNOSTIC STRIP TEST SCH ×4 (05:57→21:13)
[2020-09-21] MEDS: INSULIN LISPRO 100 UNITS/ML SUBCUT SCH ×4 (06:24→21:00)
[2020-09-21 08:00] VITALS: BP 159/61
[2020-09-21] MEDS: FAMOTIDINE 20MG TABLET PO SCH (08:57)
[2020-09-21] MEDS: ASCORBIC ACID 500 MG TABLET PO SCH ×2 (08:57→21:12)
[2020-09-21] MEDS: ZINC SULFATE 220 MG ( 50 ) CAPSULE PO SCH (08:57)
[2020-09-21] MEDS: LISINOPRIL 20MG TABLET PO SCH ×2 (08:58→21:12)
[2020-09-21] MEDS: AMLODIPINE 10MG TABLET PO SCH (08:58)
[2020-09-21] MEDS: CHOLECALCIFEROL (D3) 1000 UNIT TABLET PO SCH (08:58)
[2020-09-21] MEDS: CLOPIDOGREL 75MG TABLET PO SCH (08:58)
[2020-09-21] MEDS: SPIRONOLACTONE 25MG TABLET PO SCH ×2 (08:58→21:12)
[2020-09-21] MEDS ORDERED: CARVEDILOL 3.125 MG TABLET PO SCH ×2 (09:00→21:00)
[2020-09-21] MEDS: FUROSEMIDE 40MG TABLET PO SCH ×2 (09:04→17:17)
[2020-09-21] MEDS ORDERED: CARVEDILOL 3.125 MG TABLET PO NR (09:45)
[2020-09-21 12:00] VITALS: BP 157/67
[2020-09-21 16:00] VITALS: BP 153/98
[2020-09-21 20:00] VITALS: BP 157/67
[2020-09-21] MEDS: ATORVASTATIN CALCIUM 40MG TABLET PO SCH (21:12)
[2020-09-21] MEDS: CARVEDILOL 6.25 MG TABLET PO SCH (21:12)
[2020-09-21] MEDS: ENOXAPARIN 40MG/0.4ML SYR SUBCUT SCH (21:14)
[2020-09-21] MEDS: INSULIN GLARGINE UD 100 UNITS/ML SYR SUBCUT SCH (22:03)
[2020-09-22] VITALS: BP 162/77
[2020-09-22 04:00] VITALS: BP 185/58
[2020-09-22] MEDS: HYDRALAZINE HCL 50MG TABLET PO SCH ×2 (05:09→14:00)
[2020-09-22] MEDS: CLONIDINE 0.1MG TABLET PO PRN (05:09)
[2020-09-22] MEDS: BLOOD SUGAR DIAGNOSTIC STRIP TEST SCH ×3 (05:16→16:42)
[2020-09-22] MEDS: INSULIN LISPRO 100 UNITS/ML SUBCUT SCH ×3 (05:16→16:43)
[2020-09-22] MEDS: FUROSEMIDE 40MG TABLET PO SCH ×2 (05:19→05:50)
[2020-09-22 08:00] VITALS: BP 158/59
[2020-09-22] MEDS: AMLODIPINE 10MG TABLET PO SCH (09:35)
[2020-09-22] MEDS: CHOLECALCIFEROL (D3) 1000 UNIT TABLET PO SCH (09:35)
[2020-09-22] MEDS: CARVEDILOL 6.25 MG TABLET PO SCH (09:36)
[2020-09-22] MEDS: ZINC SULFATE 220 MG ( 50 ) CAPSULE PO SCH (09:42)
[2020-09-22] MEDS: SPIRONOLACTONE 25MG TABLET PO SCH (09:42)
[2020-09-22] MEDS: CLOPIDOGREL 75MG TABLET PO SCH (09:42)
[2020-09-22] MEDS: LISINOPRIL 20MG TABLET PO SCH (09:42)
[2020-09-22] MEDS: FAMOTIDINE 20MG TABLET PO SCH (09:42)
[2020-09-22] MEDS: ASCORBIC ACID 500 MG TABLET PO SCH (09:42)
[2020-09-22 12:00] VITALS: BP 154/68
[2020-09-22 15:48] VITALS: BP 139/65
[2020-09-22 16:00] VITALS: BP 139/65
== END 2020-09-22 16:50 | DRG 304 ==
LOC: ER 14:36 → 5WST 18:44 → SUPCPDRO 18:50 → ENRESERV 20:44
PROVIDERS: ADMIT Internal Medicine; ATTEND Internal Medicine
DX: I16.1 Hypertensive emergency (principal); I50.43 Acute on chronic combined systolic (congestive) and diastolic (congestive) heart failure; I69.351 Hemiplegia and hemiparesis following cerebral infarction affecting right dominant side; I11.0 Hypertensive heart disease with heart failure; E78.5 Hyperlipidemia, unspecified; I25.10 Atherosclerotic heart disease of native coronary artery without angina pectoris; I87.2 Venous insufficiency (chronic) (peripheral); E11.65 Type 2 diabetes mellitus with hyperglycemia; E78.00 Pure hypercholesterolemia, unspecified; F03.90 Unspecified dementia, unspecified severity, without behavioral disturbance, psychotic disturbance, mood disturbance, and anxiety; E11.42 Type 2 diabetes mellitus with diabetic polyneuropathy; R26.9 Unspecified abnormalities of gait and mobility; E11.51 Type 2 diabetes mellitus with diabetic peripheral angiopathy without gangrene; Z20.822 Contact with and (suspected) exposure to COVID-19; L60.2 Onychogryphosis; Z79.02 Long term (current) use of antithrombotics/antiplatelets; Z82.49 Family history of ischemic heart disease and other diseases of the circulatory system; Z87.891 Personal history of nicotine dependence; Z90.710 Acquired absence of both cervix and uterus; Z79.899 Other long term (current) drug therapy; L89.616 Pressure-induced deep tissue damage of right heel
CPT/HCPCS: 36415; 71045; 80048; 80053; 82550; 82553; 82607; 82746; 82962; 83036; 83540; 83550; 83735; 83880; 84100; 84439; 84443; 84484; 85025; 87426; 93005; 93306; 93923; 93970; 97110; 97162; 97166; 99285; J1650; J1815; J1940; J2405; J3490